=== PATIENT | female | born 1965 | race Caucasian/White ===

== ENCOUNTER 2022-06-06 15:07 | Emergency (ER) | payer SELFPAY ==
[~2022-06-06] VITALS: Ht 157.5 cm; Wt 72.7 kg
[2022-06-06 15:09] VITALS: TEMP 98.2
[2022-06-06 15:21] LABS: BASO # 0.1 K/mm3 (0.0-0.2); BASO % 0.4 % (0.0-2.0); EOS % 0.1 % (0.0-4.0); GRAN # 9.7 K/mm3 (1.4-6.5); HEMATOCRIT 42.3 % (37.0-47.0); HEMOGLOBIN 14.3 g/dl (12.5-16.0); LYMPH # 2.9 K/mm3 (1.2-3.4); LYMPH % 21.3 % (20.0-51.0); MEAN CELL VOLUME 90 fl (80.0-100.0); MEAN CORPUSCULAR HEMOGLOBIN 30 pg (27-31); MEAN CORPUSCULAR HGB CONC 34 g/dl (33.0-37.0); MONO % 6.9 % (1.7-9.3); PLATELET COUNT 235 K/mm3 (130-400); REDCELL DISTRIBUTION WIDTH-CV 11.9 % (11.5-14.5)
[2022-06-06 15:33] LABS: ANION GAP 15 mmol/L (7-16); BLOOD UREA NITROGEN 14 mg/dL (10-20); CALCIUM 9.1 mg/dL (8.4-10.2); CARBON DIOXIDE 17 mmol/L (22-29); CHLORIDE 112 mmol/L (98-107); CREATININE, serum 0.81 mg/dL (0.57-1.11); GLUCOSE 127 mg/dL (70-99); POTASSIUM 4.1 mmol/L (3.5-4.5); SODIUM 144 mmol/L (136-145)
[2022-06-06 15:34] LABS: ALCOHOL(ethanol),MEDICAL 316 mg/dL (0-10)
[2022-06-06 15:39] LABS: TROPONIN-I < 0.010 ng/mL (0.00-0.033)
[2022-06-06 17:11] VITALS: BP 114/78; PULSE 86
== END 2022-06-06 17:11 | disposition home or self-care (01) ==
LOC: COL.ER 15:07
PROVIDERS: Emergency Medicine
DX: S09.90XA Unspecified injury of head, initial encounter (principal); F10.129 Alcohol abuse with intoxication, unspecified; R40.2412 Glasgow coma scale score 13-15, at arrival to emergency department; Y90.8 Blood alcohol level of 240 mg/100 ml or more; Z28.310 Unvaccinated for COVID-19; W06.XXXA Fall from bed, initial encounter; Y92.59 Other trade areas as the place of occurrence of the external cause; Y93.39 Activity, other involving climbing, rappelling and jumping off
CPT/HCPCS: J1885; J2405; J2765; J7120